=== PATIENT | male | born 1985 | race Caucasian/White ===

== ENCOUNTER 2018-02-27 12:18 | Emergency (ER) | payer MEDICAID, SELFPAY ==
[~2018-02-27] VITALS: Ht 160 cm; Wt 82.0 kg
[2018-02-27] MEDS ORDERED: CETI5TAB5 PO (12:27)
[2018-02-27] MEDS ORDERED: IBUPROFEN 600MG TABLET PO ONE (12:30)
[2018-02-27 17:30] VITALS: BP 129/76
== END 2018-02-27 17:34 | disposition home or self-care (01) ==
LOC: ER 12:46
DX: M54.2 Cervicalgia (principal); S20.212A Contusion of left front wall of thorax, initial encounter; R03.0 Elevated blood-pressure reading, without diagnosis of hypertension; V49.40XA Driver injured in collision with unspecified motor vehicles in traffic accident, initial encounter; Y93.89 Activity, other specified; Y92.410 Unspecified street and highway as the place of occurrence of the external cause
CPT/HCPCS: 71111; 72125; 99284

== ENCOUNTER 2018-08-28 08:04 | Emergency (ER) | payer MEDICAID ==
[~2018-08-28] VITALS: Ht 167.6 cm; Wt 81.0 kg
[~2018-08-28 08:04] MED LIST: CETI5TAB5 PO
[2018-08-28 09:05] VITALS: BP 120/68
[2018-08-28] MEDS ORDERED: IBUPROFEN 600MG TABLET PO STA (09:33)
== END 2018-08-28 10:58 | disposition home or self-care (01) ==
LOC: ER 08:35
DX: S32.019A Unspecified fracture of first lumbar vertebra, initial encounter for closed fracture (principal); S60.812A Abrasion of left wrist, initial encounter; S60.811A Abrasion of right wrist, initial encounter; S39.012A Strain of muscle, fascia and tendon of lower back, initial encounter; R03.0 Elevated blood-pressure reading, without diagnosis of hypertension; V47.5XXA Car driver injured in collision with fixed or stationary object in traffic accident, initial encounter; Y93.89 Activity, other specified; Y92.410 Unspecified street and highway as the place of occurrence of the external cause
CPT/HCPCS: 72100; 99283

== ENCOUNTER 2019-01-07 07:42 | Emergency (ER) | payer MEDICAID ==
[~2019-01-07] VITALS: Ht 160 cm; Wt 70.0 kg
[2019-01-07 09:00] VITALS: BP 115/84
== END 2019-01-07 09:12 | disposition home or self-care (01) ==
LOC: ER 08:11
DX: T63.514A Toxic effect of contact with stingray, undetermined, initial encounter (principal); L03.116 Cellulitis of left lower limb; Y92.89 Other specified places as the place of occurrence of the external cause
CPT/HCPCS: 99283

== ENCOUNTER 2019-01-08 22:42 | Inpatient (IN) | payer MEDICAID ==
[~2019-01-08] VITALS: Ht 162.6 cm; Wt 81.6 kg
[2019-01-08] MEDS ORDERED: PIPERACILLIN/TAZ 3.375G PREMIX 50 ML IV NR (23:45)
[2019-01-08] MEDS ORDERED: SODIUM CHLORIDE 0.9% 1,000 ML IV ONE (23:53)
[2019-01-09] MEDS ORDERED: KETOROLAC 30MG/ML VIAL IV ONE
[2019-01-09] MEDS ORDERED: PIPERACILLIN/TAZOBACTAM 3.375GM/50ML PREMIX IV ONE
[2019-01-09] MEDS ORDERED: VANCOMYCIN 1 G PREMIX 200 ML IV SCH
[2019-01-09 00:26] LABS: BASOPHILS % 0.5 % (0.0-2.0); EOSINOPHILS % 4.5 % (0.0-5.0); HEMATOCRIT. 40.6 % (42.0-52.0); HEMOGLOBIN. 14.2 g/dL (14.0-18.0); LYMPHOCYTES % 34.8 % (20.0-50.0); MEAN CORPUSCULAR HEMOGLOBIN 32.2 pg (28.0-32.0); MEAN CORPUSCULAR VOLUME 92.3 fL (80.0-94.0); MEAN PLATELET VOLUME 8.3 fl (7.4-10.4); MONOCYTES % 10.8 % (2.0-8.0); NEUTROPHILS % 49.4 % (40.0-76.0); PLATELET 228 x1000/uL (130-400)
[2019-01-09 00:33] LABS: CHLORIDE 107 mEq/L (98-107)
[2019-01-09 00:35] LABS: INR 0.9; PROTHROMBIN TIME 9.8 sec (9.6-11.0)
[2019-01-09] MEDS ORDERED: KETOROLAC 15MG/ML VIAL IV NR (00:45)
[2019-01-09 09:01] VITALS: BP 115/81
[2019-01-09] MEDS ORDERED: ACETAMINOPHEN 325MG TABLET PO PRN (09:30)
[2019-01-09] MEDS ORDERED: LORAZEPAM 0.5MG TABLET PO PRN (09:30)
[2019-01-09] MEDS ORDERED: DOCUSATE SODIUM 100MG CAPSULE PO PRN (09:30)
[2019-01-09] MEDS ORDERED: IPRATROPIUM/ALBUTEROL 0.5-3(2.5)MG/3ML NEB INH PRN (09:30)
[2019-01-09] MEDS ORDERED: ONDANSETRON HCL 4MG/2ML INJ IV PRN (09:30)
[2019-01-09 11:04] VITALS: BP 115/81
[2019-01-09] MEDS: VANCOMYCIN 1 G PREMIX 200 ML IV SCH ×2 (11:45→18:55)
[2019-01-09] MEDS: PIPERACILLIN/TAZ 3.375G PREMIX 50 ML IV SCH ×3 (11:45→22:07)
[2019-01-09 12:00] VITALS: BP_SYST 101; BP_SYST 118; BP_DIAS 61; BP_DIAS 62
[2019-01-09] MEDS: HYDROCODONE/ACETAMINOPHEN 5/325MG TABLET PO PRN ×2 (15:31→22:17)
[2019-01-09 16:00] VITALS: BP 102/72
[2019-01-09 20:00] VITALS: BP 111/75
[2019-01-10] VITALS: BP 107/64
[2019-01-10] MEDS: HYDROCODONE/ACETAMINOPHEN 5/325MG TABLET PO PRN ×2 (03:00→07:03)
[2019-01-10] MEDS: VANCOMYCIN 1 G PREMIX 200 ML IV SCH ×2 (03:36→11:00)
[2019-01-10 04:00] VITALS: BP 115/72
[2019-01-10] MEDS: PIPERACILLIN/TAZ 3.375G PREMIX 50 ML IV SCH ×2 (05:49→11:00)
[2019-01-10 08:00] VITALS: BP 94/66
[2019-01-10 09:14] LABS: BASOPHILS % 0.5 % (0.0-2.0); EOSINOPHILS % 5.6 % (0.0-5.0); HEMATOCRIT. 42.2 % (42.0-52.0); HEMOGLOBIN. 13.9 g/dL (14.0-18.0); LYMPHOCYTES % 38.3 % (20.0-50.0); MEAN CORPUSCULAR HEMOGLOBIN 31.2 pg (28.0-32.0); MEAN CORPUSCULAR VOLUME 94.7 fL (80.0-94.0); MEAN PLATELET VOLUME 8.2 fl (7.4-10.4); MONOCYTES % 12.4 % (2.0-8.0); NEUTROPHILS % 43.2 % (40.0-76.0); PLATELET 213 x1000/uL (130-400); RED BLOOD CELL COUNT 4.46 mill/uL (4.7-6.1); RED CELL DISTRIBUTION WIDTH 14.2 % (11.6-14.6)
[2019-01-10 10:07] LABS: CHLORIDE 106 mEq/L (98-107)
[2019-01-10 10:14] LABS: VANCOMYCIN TROUGH 20.7 ug/mL (5.0-10.0)
[2019-01-10] MEDS ORDERED: SULF1TAB48 MT (10:17)
[2019-01-10] MEDS ORDERED: CIPR-263 MT (10:17)
[2019-01-10 11:02] VITALS: BP 94/66
[2019-01-10] MEDS ORDERED: VANCOMYCIN 1250MG in DEXTROSE 5% WATER 250ML IV SCH (22:00)
== END 2019-01-10 12:30 | disposition home or self-care (01) | DRG 816 ==
LOC: ER 22:42 → 6EST 01-09 01:33 → EDBEDREQTM 01-09 01:56 → EDBEDREQ 01-09 01:56 → ENRESERV 01-09 07:02
PROVIDERS: ADMIT Internal Medicine; ATTEND Internal Medicine
DX: T63.511A Toxic effect of contact with stingray, accidental (unintentional), initial encounter (principal); L03.116 Cellulitis of left lower limb; Z79.899 Other long term (current) drug therapy; Y92.89 Other specified places as the place of occurrence of the external cause
CPT/HCPCS: 36415; 80048; 80202; 99285; J1885; J2543; J3370; J7030; J7050; J7060